=== PATIENT | female | born 1970 | race Caucasian/White ===

== ENCOUNTER 2022-01-26 13:00 | Outpatient (CLI) | payer BC, SELFPAY ==
--- NOTE | ~2022-01-26 | MMUS_ITS ---
EXAMINATION: MM diagnostic farhan BI w dario, US breast BI complete HISTORY: Breast pain. Palpable right breast lump. TECHNIQUE: Additional 3-D tomosynthesis images of the breasts were performed and synthetic 2-D images were generated. CAD analysis was submitted and interpreted. High resolution complete bilateral breas t ultrasound was performed. COMPARISON: None BREAST PARENCHYMAL COMPOSITION: The breasts are heterogeneously dense, which may obscure small masses FINDINGS: MAMMOGRAPHIC FINDINGS: There are no suspicious masses or architectural distortion. There are benign-appearing bilateral baljit st calcifications. ULTRASOUND: Complete bilateral US of all 4 quadrants of the breasts and retroareolar region was reviewed. Right breast: At 4:00, 10 cm from the nipple there is a 4 mm cyst. At 5:00, 7 cm from the nipple ther e is a 7 mm cyst. At 5:00, 7 cm from the nipple, there is a hypoechoic irregular shaped mass with pos terior shadowing and internal vascularity measuring 5 mm. Left breast: There is a 1 cm cyst at 3:00, 10 cm from the nipple. No suspicious masses are identified in the left breast to suggest malignancy. IMPRESSION: 1. Irregular shaped hypoechoic right breast mass located at 5:00, 7 cm from the nipple measuring 5 mm maximum dimension. 2. Ultrasound-guided right breast biopsy recommended. BI-RADS category 4, suspicious findings. Reviewed, dictated and finalized at location A. IMPRESSION: 1. Irregular shaped hypoechoic right breast mass located at 5:00, 7 cm from the nipple measuring 5 mm maximum dimension. 2. Ultrasound-guided right breast biopsy recommended. BI-RADS category 4, suspicious findings.
== END 2022-01-26 13:01 | disposition home or self-care (01) ==
PROVIDERS: Visit Provider Obstetrics & Gynecology
DX: N63.0 Unspecified lump in unspecified breast (principal); R92.8 Other abnormal and inconclusive findings on diagnostic imaging of breast
CPT/HCPCS: 76641; 77062; 77066; G0279

== ENCOUNTER 2023-01-22 04:10 | Day surgery (SDC) | payer BC, SELFPAY ==
[2023-01-18 15:44] VITALS: BMI 27.8
--- NOTE | 2023-01-18 15:52 | PC.NURSE ---
Report to the Outpatient Waiting Room, entrance under the green pavilion located off [facility], at time 0800 on date 01/22/23. Planned Procedure Time: 1000. Time changes happen often and if your time is changed the preop area will call you the afternoon before. - You and your visitor will be asked to self-screen and do not enter if you have any COVID symptoms. - A mask is optional within the hospital at this time. Patients may have clear liquids (water, carbonated beverages, clear teas, apple juice) until 3 hours prior to surgery with a maximum of 20 ounces. - No food from midnight until time of surgery Take the following medications with a SIP of water the morning of surgery: NONE DO NOT STOP ANY OF YOUR OTHER PRESCRIPTION MEDICATIONS PRIOR TO SURGERY ?EXCEPT THE FOLLOWING Medications to discontinue per physician: MELOXICAM Date to take last dose: 01/15/23 PER PT Please no make-up, nail ukrainian, hairspray, perfume, deodorant, or body powder the day of surgery. No jewelry (including any body piercings) or valuables the day of surgery, leave them at home. Please take a shower or bath the night before, or the morning of, surgery with an antibacterial soap. Wear comfortable, loose fitting clothing. - Jewelry must be removed prior to entering the operating room. Rings and piercings that are not removed may be cut off. - The hospital will not accept responsibility for valuables. - Please leave all valuables, including medications, at home the day of surgery. If you are going home after surgery, a licensed rental car ferry driver must drive you home. - NO public transportation without another adult if you receive anesthesia. - We recommend that an adult stay with you for 24 hours following discharge. - We also recommend that you do not drive, make important decision, drink alcoholic beverages, or take any drugs that were not prescribed by your health care provider for at least 24 hours after your discharge time. Follow any additional instructions given to you from your surgeon. If you or anyone in your household have experienced Covid symptoms in the past week, please notify your surgeon or the nurse liaison at the phone number below for possible testing. Telephone instructions given to PT - SHARAN SCHRADER and asked if any additional questions and then verbalized understanding. Patient advised to call surgeon office or pre surgery nurse liaison [phone] if any additional questions.
--- NOTE | 2023-01-22 07:05 | WPDHPUPDATE1 ---
History and Physical Update Update Date/Time: 01/22/23 07:05 History and Physical has been reviewed, including an updated exam of the patient. There are NO changes in the patient's condition. Risks, benefits, and alternatives have been discussed and questions answered. Patient agrees to proceed with procedure.
[2023-01-22 09:15] VITALS: BP 119/76; PULSE 63; RESP 16; TEMP 36.6; O2SAT 99; BMI 27.8
[2023-01-22] MEDS: LACTATED RINGERS 1,000 ML 30 ML IV CONT (10:05)
--- NOTE | 2023-01-22 10:06 | P.PNAN_ITS ---
Anes - Initial Pre Proc Eval Procedure: Operation Date: 01/22/23 11:00 Proposed Procedures p Partial Plantar Fasciotomy Left Foot - Greyson Conway JR, MD Date/Time: 01/22/23 10:06 Surgeon: Greyson Conway JR, MD Pre Op Diagnosis: plantar fasciitis left foot Patient Data Age: 52 Gender: F Height: 1.57 m Weight: 69 kg Allergies Allergy/AdvReac Type Severity Reaction Status Date / Time hydrocodone Allergy Unknown Hives Verified 01/18/23 15:43 codeine Allergy Hives Verified 01/18/23 15:43 Home Medications Medication Instructions Recorded Confirmed Type meloxicam 15 mg tablet 15 mg PO BID 01/18/23 01/18/23 History Patient hx anesthesia problems: none Family hx anesthesia problems: none Results Review: All pre-operative results and documents have been reviewed as part of the pre- operative evaluation. [facility] Past Medical History Medical History (Updated 01/22/23 @ 10:07 by Yosef Ramires MD) Overweight Surgical History Surgical History (Updated 01/22/23 @ 10:07 by Yosef Ramires MD) Hx of tonsillectomy Social History Social History Smoking status: Never smoker Alcohol intake: current Drinks per week: 1 Substance use: never Substance use type: does not use Living arrangements: with family Additional living arrangements comments: EX- Spiritual care concerns: No Anes - Eval Final PreProcedure Day of Procedure 01/22/23 10:06 Patient weight: overweight Heart: regular rate and rhythm Lungs: clear to auscultation Airway: Mallampati scale class II Neurological: alert and oriented Last oral intake: >/= 8 hours ASA classification: II Emergent: no Anesthetic plan: proceed Anesthesia type and monitoring: general GIVS and standard monitoring Results Review: All pre-operative results and documents have been reviewed as part of the pre- operative evaluation. Informed Consent: The patient's anesthetic plan and its attendant risks and benefits were discussed with the patient/family/POA. Questions were solicited and answers provided to the satisfaction of the patient/family/POA.
[2023-01-22] MEDS: ceFAZolin 2 GM/D5W 50 ML 2 GM/50 ML BAG IVPB (11:29)
[2023-01-22] MEDS: LIDOCAINE HCL 2% PF INJ 5 ML VIAL 20 ML INFILTRATE (11:52)
--- NOTE | 2023-01-22 12:10 | P.OP_ITS ---
Procedure Note - Detailed Date of Procedure 01/22/23 Pre-op Diagnosis plantar fasciitis left foot Post-op Diagnosis Same Procedure Performed Partial plantar fasciectomy left foot Surgeon Greyson Conway JR, SAMIM Anesthesia MAC and Local Indications Recalcitrant plantar heel pain left Findings Narrow thick plantar fascia Description of Procedure Under mild sedation, the patient was brought in to the operating room, placed on the operating table in the supine position. A pneumatic ankle tourniquet was placed about the patient's ankle. Following general anesthesia, local anesthesia was obtained about the affected lower extremity utilizing 20 mL of a one to mix of 2% Lidocaine plain and 0.5% Marcaine plain to the tibial nerve. The foot was then scrubbed, prepped, and draped in the usual aseptic manner. An Esmarch bandage was then used to exsanguinate the patient's foot and the pneumatic ankle tourniquet was then inflated. Next, an incision was made starting distal to the medial tubercle of the calca neus extending distally 3cm. All bleeders were cauterized as necessary. Next the dissection was continued down to the plantar fascia it was exposed medially and laterally with [employer] [place] retractors.Narrow thick plantar fascia was noted. Two thirds of the medial plantar fascia was transected and a 4mm portion was also cut and discarded. The wound site was flushed with sterile saline. The deep subcutaneous tissue was reapproximated with 3.0 Vicryl and the skin was reapproximated with 2.0 Prolene and 3.0 Prolene in Vertical mattress and Simple interrupted suture technique. Upon completion of the procedure, the plantar incision was dressed with adaptic, 4x4 gauze, kerlix and coban. The pneumatic ankle tourniquet was then deflated and a prompt hyperemic response was noted to all digits of the affected foot. A CAM Walker boot was then applied. The patient did very well with the procedure and the anesthesia. The patient was transferred to the recovery room with vital signs stable and vascular status intact to all toes of the affected foot. Following a period of postoperative monitoring, the patient will be discharged home on the following written and oral postoperative instructions: 1. The patient should keep the dressing clean, dry, and intact. Use a cast protector bag with showers. 2. The patient will be strictly protected weight bearing with CAM walker boot. 3. Patient should ice and elevate the affected foot when at rest. 4. The patient is to contact Dr. Conway for all postop care and if any problems arise. 5. Prescriptions were written for Seglentis to be taken two p.o. q.12 hours as needed for pain. Estimated Blood Loss 1 Drains No Packing No Pathology None sent Complications No immediate complications Condition Stable Disposition Same day
[2023-01-22 12:13] VITALS: BP 117/74; PULSE 71; RESP 14; O2SAT 99
[2023-01-22 12:43] VITALS: BP 117/75; PULSE 67; O2SAT 99
[2023-01-22 13:01] VITALS: BP 126/82; PULSE 61; O2SAT 99
[2023-01-22 13:20] VITALS: BP 120/73; PULSE 60; RESP 16
== END 2023-01-22 13:30 | disposition home or self-care (01) ==
PROVIDERS: PCP Nurse Practitioner Family; Visit Provider Podiatrist Foot & Ankle Surgery
PROC: (CPT 28119; principal; 2023-01-22 11:00)
DX: M72.2 Plantar fascial fibromatosis (principal)
CPT/HCPCS: 28060; J0690; J1100; J2250; J2405; J2704; J3010; J7120